=== PATIENT | male | born 1990 | race Caucasian/White ===

== ENCOUNTER 2018-05-03 20:56 | Emergency (ER) | payer MEDICAID, OTHER ==
[~2018-05-03] VITALS: Ht 190.5 cm; Wt 89.0 kg
[2018-05-03 21:58] LABS: MICROSCOPIC NOT IND
[2018-05-03 22:16] LABS: CULTURE INDICATED? NO
[2018-05-03 22:38] VITALS: BP 120/74
== END 2018-05-03 22:41 | disposition home or self-care (01) ==
LOC: ED 22:35
DX: F41.1 Generalized anxiety disorder (principal)
CPT/HCPCS: 71046; 81003; 93005; 99284